=== PATIENT | female | born 1990 | race African-American/Black ===

== ENCOUNTER 2017-07-01 08:40 | Emergency (ER) | payer MEDICAID ==
[~2017-07-01] VITALS: Ht 165.1 cm; Wt 70.0 kg
[~2017-07-01 08:40] MED LIST: HYDR-3965 PO; IBUP-1986 PO; LACT1TAB13 PO; METH4TAB81 PO; ONDA4TAB6 PO
[2017-07-01 08:45] VITALS: BP 106/72
[2017-07-01] MEDS ORDERED: penicillin G benzathine 1.2 million unit/2ml syringe IM STA (09:04)
[2017-07-01] MEDS ORDERED: dexamethasone sod phosphate 10mg/ml inj PO STA (09:04)
[2017-07-01] MEDS ORDERED: AZIT250T2 PO (09:09)
== END 2017-07-01 09:38 | disposition home or self-care (01) ==
LOC: ER 08:40
DX: J02.9 Acute pharyngitis, unspecified (principal); H92.03 Otalgia, bilateral; R50.9 Fever, unspecified; R05 Cough; Z88.8 Allergy status to other drugs, medicaments and biological substances; Z88.6 Allergy status to analgesic agent; Z79.899 Other long term (current) drug therapy
CPT/HCPCS: 96372; 99283; J0561; J1100

== ENCOUNTER 2017-09-07 10:49 | Emergency (ER) | payer MEDICAID ==
[~2017-09-07] VITALS: Ht 167.6 cm; Wt 70.0 kg
[2017-09-07 11:02] VITALS: BP 113/72
== END 2017-09-07 11:59 | disposition home or self-care (01) ==
LOC: ER 10:49
DX: S16.1XXA Strain of muscle, fascia and tendon at neck level, initial encounter (principal); Z88.6 Allergy status to analgesic agent; Z88.8 Allergy status to other drugs, medicaments and biological substances; Z79.899 Other long term (current) drug therapy; X58.XXXA Exposure to other specified factors, initial encounter; Y93.89 Activity, other specified; Y92.89 Other specified places as the place of occurrence of the external cause; Y99.8 Other external cause status
CPT/HCPCS: 99281

== ENCOUNTER 2018-03-10 14:45 | Emergency (ER) | payer MEDICAID ==
[~2018-03-10] VITALS: Ht 167.6 cm; Wt 72.7 kg
[2018-03-10 15:39] VITALS: BP 120/80
[2018-03-10 16:32] LABS: CLARITY,URINE CLEAR (Clear); COLOR,URINE YELLOW (Yellow); GLUCOSE, URINE NEGATIVE (Neg); KETONES,URINE NEGATIVE (Neg); LEUKOCYTE ESTERASE ,URINE NEGATIVE (Neg); NITRITES, URINE NEGATIVE (Neg); OCCULT BLOOD,URINE NEGATIVE (Neg); PH,URINE 6.5 (4.8-8.0); PROTEIN,URINE NEGATIVE (Neg); URINE HCG NEGATIVE (NEG); UROBILINOGEN,URINE 0.2 E.U/dL (0.2-1.0)
[2018-03-10 16:33] LABS: UA COLLECTION TYPE CLN CATCH MIDSTREAM
[2018-03-10] MEDS ORDERED: PHEN-824 PO (16:33)
[2018-03-10] MEDS ORDERED: NITR100C6 PO (16:33)
== END 2018-03-10 17:30 | disposition home or self-care (01) ==
LOC: ER 14:45
DX: N39.0 Urinary tract infection, site not specified (principal); R06.2 Wheezing; F17.200 Nicotine dependence, unspecified, uncomplicated; Z88.6 Allergy status to analgesic agent; Z88.8 Allergy status to other drugs, medicaments and biological substances; Z79.899 Other long term (current) drug therapy
CPT/HCPCS: 36415; 81003; 81025; 87491; 99283

== ENCOUNTER 2018-10-13 08:47 | Emergency (ER) | payer MEDICAID ==
[~2018-10-13] VITALS: Ht 167.6 cm; Wt 75.0 kg
[~2018-10-13 08:47] MED LIST changes: +NITR100C6 PO; +PHEN-824 PO
[2018-10-13 10:15] VITALS: BP 110/78
== END 2018-10-13 10:17 | disposition home or self-care (01) ==
LOC: ER 08:48
DX: S90.31XA Contusion of right foot, initial encounter (principal); Z88.8 Allergy status to other drugs, medicaments and biological substances; Z88.6 Allergy status to analgesic agent; Z79.899 Other long term (current) drug therapy; W50.0XXA Accidental hit or strike by another person, initial encounter; Y93.89 Activity, other specified; Y92.89 Other specified places as the place of occurrence of the external cause; Y99.8 Other external cause status
CPT/HCPCS: 73630; 99283

== ENCOUNTER 2019-01-25 15:28 | Emergency (ER) | payer MEDICAID | END 2019-01-25 16:35 | disposition left against medical advice (07) | LOC: ER 15:28 | DX: M25.559 Pain in unspecified hip (principal); Z53.21 Procedure and treatment not carried out due to patient leaving prior to being seen by health care provider ==

== ENCOUNTER 2019-01-30 08:10 | Emergency (ER) | payer MEDICAID ==
[~2019-01-30] VITALS: Ht 165.1 cm; Wt 77.6 kg
[2019-01-30 08:16] VITALS: BP 111/79
[2019-01-30] MEDS ORDERED: ketorolac tromethamine 15mg/ml inj. IM ONE (09:10)
[2019-01-30] MEDS ORDERED: METH-360 PO (09:16)
[2019-01-30] MEDS ORDERED: ipratropium/albuterol 3ml nebule NEB ONE (09:25)
== END 2019-01-30 09:36 | disposition home or self-care (01) ==
LOC: ER 08:11
DX: M25.551 Pain in right hip (principal); M25.552 Pain in left hip; Z88.8 Allergy status to other drugs, medicaments and biological substances; Z88.6 Allergy status to analgesic agent; Z79.899 Other long term (current) drug therapy; Z56.0 Unemployment, unspecified
CPT/HCPCS: 73521; 96372; 99283; J1885

== ENCOUNTER 2019-04-09 15:51 | Emergency (ER) | payer MEDICAID ==
[~2019-04-09] VITALS: Ht 167.6 cm; Wt 75.9 kg
[~2019-04-09 15:51] MED LIST changes: +METH-360 PO
[2019-04-09 15:58] VITALS: BP 111/74
--- NOTE | 2019-04-09 16:37 | NUR ---
PT TO XRAY
[2019-04-09] MEDS ORDERED: ALBU8HFA PO (17:04)
[2019-04-09] MEDS ORDERED: PRED20TA PO (17:04)
== END 2019-04-09 17:20 | disposition home or self-care (01) ==
LOC: ER 15:52
DX: J06.9 Acute upper respiratory infection, unspecified (principal); Z88.8 Allergy status to other drugs, medicaments and biological substances; Z88.6 Allergy status to analgesic agent; Z79.899 Other long term (current) drug therapy
CPT/HCPCS: 71045; 99283

== ENCOUNTER 2021-10-22 22:29 | Emergency (ER) | payer MEDICAID | END 2021-10-22 23:39 | disposition left against medical advice (07) | LOC: ER 22:30 | DX: K08.89 Other specified disorders of teeth and supporting structures (principal); Z53.21 Procedure and treatment not carried out due to patient leaving prior to being seen by health care provider ==

== ENCOUNTER 2022-02-28 18:50 | Emergency (ER) | payer MEDICAID ==
[~2022-02-28] VITALS: Ht 167.6 cm; Wt 75.0 kg
[2022-02-28 18:59] VITALS: BP 135/85
[2022-02-28 19:31] LABS: HEMOGLOBIN 14.4 g/dl (12.0-16.0); MEAN CORPUSCULAR HGB CONC 33.3 g/dL (33.0-36.5); MEAN PLATELET VOLUME 8.1 FL (7.4-10.4); RED BLOOD COUNT 4.83 X10'6 (4.20-5.60)
[2022-02-28 19:32] LABS: BASOPHILS # (AUTO) 0.1 X10'3 (0-0.2); BASOPHILS % (AUTO) 0.9 % (0-1); EOSINOPHILS # (AUTO) 0.1 X10'3 (0-0.9); EOSINOPHILS % (AUTO) 1.2 % (0-6); HEMATOCRIT 43.3 % (35.0-45.0); LYMPHOCYTES # (AUTO) 2.1 X10'3 (1.1-4.8); LYMPHOCYTES % (AUTO) 35.6 % (21-51); MEAN CORPUSCULAR HEMOGLOBIN 29.9 PG (27.0-31.0); MEAN CORPUSCULAR VOLUME 89.6 FL (78-98); MONOCYTES # (AUTO) 0.9 X10'3 (0-0.9); MONOCYTES % (AUTO) 14.8 % (2-12); NEUTROPHILS # (AUTO) 2.9 X10'3 (1.8-7.7); NEUTROPHILS % (AUTO) 47.5 % (42-75); PLATELET COUNT 205 X10'3 (140-440); RED CELL DISTRIBUTION WIDTH 13.3 % (11.5-14.5)
[2022-02-28 19:44] LABS: ALANINE AMINOTRANSFERASE 44 U/L (12-78); ALBUMIN 3.5 G/DL (3.4-5.0); ALKALINE PHOSPHATASE 93 IU/L (46-116); ANION GAP 7 (8-16); ASPARTATE AMINO TRANSFERASE 24 U/L (10-37); BILIRUBIN,TOTAL 0.2 MG/DL (0.1-1.0); BLOOD UREA NITROGEN 8 MG/DL (7-18); BUN/CREATININE RATIO 9.4 (6.6-38.0); CALCIUM 9.2 MG/DL (8.5-10.1); CHLORIDE 105 MMOL/L (99-107); CREATININE 0.85 MG/DL (0.40-0.90); GLUCOSE 87 MG/DL (70-104); LIPASE 100 U/L (73-393); POTASSIUM 3.9 MMOL/L (3.5-5.1); SODIUM 139 MMOL/L (135-145); TOTAL CARBON DIOXIDE 27.1 MMOL/L (24-32); eGFR > 90 ML/MIN
[2022-02-28 19:45] LABS: URINE HCG NEGATIVE (NEG)
[2022-02-28 19:53] LABS: CLARITY,URINE CLEAR (Clear); COLOR,URINE YELLOW (Yellow); GLUCOSE, URINE NEGATIVE (Neg); KETONES,URINE NEGATIVE (Neg); LEUKOCYTE ESTERASE ,URINE NEGATIVE (Neg); NITRITES, URINE NEGATIVE (Neg); OCCULT BLOOD,URINE SMALL (Neg); PROTEIN,URINE NEGATIVE (Neg); UROBILINOGEN,URINE 0.2 E.U/dL (0.2-1.0)
[2022-02-28 19:59] LABS: SQUAMOUS EPITHELIAL CELL,UR MANY /LPF (FEW); UA COLLECTION TYPE CLN CATCH MIDSTREAM
[2022-02-28 20:00] LABS: BACTERIA,URINE FEW /HPF (Neg); RBC,URINE 0-2 /HPF (0-2); TRANSITIONAL EPI CELLS,URINE FEW /HPF; WBC,URINE 0-4 /HPF (0-4)
[2022-02-28] MEDS: HYDROcodone/acetaminophen 5mg/325mg tablet PO ONE (20:12)
[2022-02-28] MEDS: ondansetron 4mg rapidly disintigrating tab PO ONE (20:12)
[2022-02-28] MEDS ORDERED: FAMO20TA47 PO (21:03)
[2022-02-28 21:07] LABS: PLATELET ESTIMATE NORMAL; TOTAL CELLS COUNTED 100
[2022-02-28 21:08] LABS: SMUDGE CELLS 2+
== END 2022-02-28 22:16 | disposition home or self-care (01) ==
LOC: ER 18:51
DX: R10.11 Right upper quadrant pain (principal); R10.13 Epigastric pain; Z87.440 Personal history of urinary (tract) infections; Z88.6 Allergy status to analgesic agent; Z88.8 Allergy status to other drugs, medicaments and biological substances; Z79.899 Other long term (current) drug therapy
CPT/HCPCS: 36415; 76700; 80053; 81001; 81025; 83690; 85007; 85025; 93005; 99285

== ENCOUNTER 2023-02-17 13:56 | Emergency (ER) | payer MEDICAID ==
[~2023-02-17] VITALS: Ht 167.6 cm; Wt 61.9 kg
[~2023-02-17 13:56] MED LIST changes: +FAMO20TA47 PO
[2023-02-17 14:01] VITALS: BP 125/84; PULSE 87; RESP 16; TEMP 99.1; O2SAT 96
== END 2023-02-17 16:23 | disposition left against medical advice (07) ==
LOC: ER 13:56
DX: H92.02 Otalgia, left ear (principal); Z53.21 Procedure and treatment not carried out due to patient leaving prior to being seen by health care provider
CPT/HCPCS: 99281